=== PATIENT | female | born 1945 | race Caucasian/White ===

== ENCOUNTER 2018-08-22 10:27 | Outpatient (REF) | payer MEDICARE, OTHER, SELFPAY ==
--- NOTE | 2018-08-22 10:00 | SKI_PTH ---
PATIENT: Jordyn Mahoney LOC: [facility] U#:[id number] AGE/SX: 72/F ROOM: RE08/22/[address]: Swapna Arredondo : 1945 BED: DIS: 08/22/2018 SPEC #: [id number] RECD: 08/23/18 12:41 STATUS: LUIS REEbony #: [id number] DOROTHY: 08/22/18 10:[address]: Swapna Sainz DEPT: Surgical Specimen RECD BY: Remedios Farley Tissues: 1 - SKIN BIOPSY(SHAVE/PUNCH) Procedures: SKIN LEVEL 4 Comments: [id number]
[2018-08-22 22:01] LABS: BUN 18 mg/dL (7-18); Calcium 8.8 mg/dL (8.5-10.1); Chloride 104 mmol/L (98-107); Glucose 94 mg/dL (70-100); Potassium 4.3 mmol/L (3.5-5.1); Sodium 139 mmol/L (136-145)
== END 2018-08-22 10:47 ==
LOC: NCHCN 10:27
PROVIDERS: PCP Nurse Practitioner Family; Visit Provider Nurse Practitioner Family
DX: I48.0 Paroxysmal atrial fibrillation (principal); Z79.01 Long term (current) use of anticoagulants; Z82.49 Family history of ischemic heart disease and other diseases of the circulatory system; C44.629 Squamous cell carcinoma of skin of left upper limb, including shoulder
CPT/HCPCS: 80048; 88305

== ENCOUNTER 2019-02-10 11:49 | Outpatient (REF) | payer MEDICARE, OTHER, SELFPAY ==
[2019-02-10 20:52] LABS: ALT 50 U/L (12-78); AST 31 U/L (15-37); Albumin 3.2 g/dL (3.4-5.0); Alkaline Phosphatase 120 U/L (46-116); Anion Gap 7.8 mmol/L (3-11); BUN 18 mg/dL (7-18); Bilirubin, Total 0.5 mg/dL (0.2-1.0); CO2 26.2 mmol/L (21.0-32.0); CREATININE 0.86 mg/dL (0.55-1.02); Calcium 8.2 mg/dL (8.5-10.1); Chloride 103 mmol/L (98-107); Glucose 89 mg/dL (70-100); Potassium 4.6 mmol/L (3.5-5.1); Sodium 137 mmol/L (136-145)
== END 2019-02-10 12:09 ==
LOC: LBN 11:49
PROVIDERS: PCP Nurse Practitioner Family; Visit Provider Internal Medicine Clinical Cardiac Electrophysiology
DX: I48.3 Typical atrial flutter (principal)
CPT/HCPCS: 80053

== ENCOUNTER 2020-01-19 20:59 | Outpatient (REF) | payer MEDICARE, OTHER, SELFPAY ==
[2020-01-19 21:08] LABS: Bacteria Few HPF (Negative); C & S Indicated? C&S Done As Ordered; Crystals Negative HPF (Negative); Epithelial Cells Many HPF (Negative); Mucus Heavy (Negative); RBC 0-2 HPF (0-2); WBC Negative HPF (0-5)
== END 2020-01-19 21:19 ==
LOC: NCHCN 20:59
PROVIDERS: PCP Nurse Practitioner Family; Visit Provider Internal Medicine
DX: N39.0 Urinary tract infection, site not specified (principal)
CPT/HCPCS: 81015; 87086

== ENCOUNTER 2020-03-18 22:27 | Outpatient (REF) | payer MEDICARE, OTHER, SELFPAY ==
[2020-03-18 21:39] LABS: Anion Gap 9.5 mmol/L (3-11); BUN 23 mg/dL (7-18); CO2 26.5 mmol/L (21.0-32.0); CREATININE 1.22 mg/dL (0.55-1.02); Calcium 9.6 mg/dL (8.5-10.1); Chloride 103 mmol/L (98-107); Estimated GFR 43.08 (mL/min/1.73m2); Glucose 91 mg/dL (74-106); Potassium 4.2 mmol/L (3.5-5.1); Sodium 139 mmol/L (136-145)
== END 2020-03-18 22:47 ==
LOC: NCHCN 22:27
PROVIDERS: PCP Nurse Practitioner Family; Visit Provider Internal Medicine Clinical Cardiac Electrophysiology
DX: I48.91 Unspecified atrial fibrillation (principal)
CPT/HCPCS: 80048

== ENCOUNTER 2020-04-16 21:39 | Outpatient (REF) | payer MEDICARE, OTHER, SELFPAY | END 2020-04-16 21:59 | LOC: NCHCN 21:39 | PROVIDERS: PCP Nurse Practitioner Family; Visit Provider Nurse Practitioner Family | DX: R31.9 Hematuria, unspecified (principal) | CPT/HCPCS: 87077; 87086; 87186 ==

== ENCOUNTER 2020-11-27 12:01 | Outpatient (REF) | payer MEDICARE, OTHER, SELFPAY ==
[2020-11-27 22:03] LABS: Abs Immature Grans 0.01 10^3/uL (0.0-0.06); Absolute Basophil Count 0.03 10^3/uL (0.0-0.2); Absolute Monocyte Count 0.49 10^3/uL (0.1-0.8); Absolute Neutrophil Count 3.31 10^3/uL (1.2-6.7); Basophils % 0.5; Eosinophils % 1.7; HCT 38.1 % (36.0-46.0); Immature Grans % 0.2; Lymphocytes % 31.4; MCH 34.7 pg (27.0-33.0); MCHC 34.1 % (32.0-36.0); MCV 101.6 fL (80-95); MPV 9.6 fL (8.0-11.0); Monocytes % 8.5; Neutrophils % 57.7; Nucleated RBC 0 %; Platelet Count 307 10^3/uL (130-400); RBC 3.75 10^6/uL (3.93-5.22); RDW 13.5 % (11.7-14.6); RDW-SD 50.1 fL; WBC 5.74 10^3/uL (4.4-10.8)
[2020-11-27 22:29] LABS: Anion Gap 10.2 mmol/L (3-11); BUN 23 mg/dL (7-18); CO2 24.8 mmol/L (21.0-32.0); CREATININE 1.1 mg/dL (0.55-1.02); Calcium 8.9 mg/dL (8.5-10.1); Chloride 103 mmol/L (98-107); Estimated GFR 48.55 (mL/min/1.73m2); Glucose 84 mg/dL (74-106); Potassium 4.8 mmol/L (3.5-5.1); Sodium 138 mmol/L (136-145)
== END 2020-11-27 12:02 | disposition home or self-care (01) ==
LOC: LBN 12:01
PROVIDERS: PCP Nurse Practitioner Family; Visit Provider Internal Medicine Clinical Cardiac Electrophysiology
DX: I48.91 Unspecified atrial fibrillation (principal)
CPT/HCPCS: 80048; 85025

== ENCOUNTER 2023-04-30 13:05 | Outpatient (REF) | payer MEDICARE, OTHER, SELFPAY | END 2023-04-30 13:06 | disposition home or self-care (01) | LOC: LBN 13:05 | PROVIDERS: Visit Provider Physician Assistant Medical | DX: R30.0 Dysuria (principal) | CPT/HCPCS: 87086 ==